=== PATIENT | male | born 1995 | race Caucasian/White ===

== ENCOUNTER 2022-01-25 09:06 | Emergency (ER) | payer OTHER, BC ==
[~2022-01-25] VITALS: Ht 182.9 cm; Wt 86.2 kg
[2022-01-25] MEDS ORDERED: LIDODERM1 EACH TD (10:12)
[2022-01-25] MEDS ORDERED: HYDROCODON-ACE1 EA10 PO (10:12)
[2022-01-25] MEDS ORDERED: NAPROSYN500 MG PO (10:12)
== END 2022-01-25 10:28 | disposition home or self-care (01) ==
LOC: ED 09:06
DX: S39.012A Strain of muscle, fascia and tendon of lower back, initial encounter (principal); X50.1XXA Overexertion from prolonged static or awkward postures, initial encounter; Z88.5 Allergy status to narcotic agent
CPT/HCPCS: 99283